=== PATIENT | male | born 1955 | race Caucasian/White ===

== ENCOUNTER → 2024-08-14 | Outpatient (CLI) | payer OTHER, SELFPAY ==
--- NOTE | 2024-08-14 12:00 | XR_ITS ---
Exam: MRI knee without contrast, left Date and time of exam: August 14, 2024 1220 hours INDICATIONS: Left knee pain joint locking clicking stiffness 24 years Technique: Multiple axial, coronal, and sagittal sections on the knee have been obtained. T2-Weighted sagittal, fat-suppressed images, TR 3,500, TE 62, T2 weighted coronal fat-saturated images, TR 3,500, TE 62 Proton density sagittal sections, TR 1800, TE 31. T-1 weighted coronal images, TR 524, TE 13.0 Findings: Medial meniscus anterior horn truncation intermargin. Medial meniscus, body large horizontal linear tear. Posterior horn medial meniscus horizontal linear tear communicating inferior articular surface near the inner margin. Lateral meniscus anterior horn is intact linear tear Lateral meniscus, body is intact Posterior horn lateral meniscus is intact Anterior cruciate ligament mild attenuation Posterior cruciate ligament appears intact. Knee effusion is minimal. Quadriceps and patellar tendons appear intact. There is no evidence of tendinosis. Inflammatory change or fracture of Hoffa's fat pad is not seen. Medial patellar facet demonstrates severe thinning. Lateral patellar facet cartilage demonstrates severe thinning. Trochlear cartilage demonstrates severe thinning. Marrow signal adequate. Medial collateral ligament appears intact. No meniscocapsular separation is seen. Illiotibial band and fibular collateral ligament are intact. Biceps femoris tendons appear intact. Medial femoral condylar articular cartilage demonstrates severe thinning. Lateral femoral condylar articular cartilage demonstratesmild thinning. Tibial plateau cartilage demonstrates severe medial thinning. Impression: Extensive medial meniscus tears Tear anterior horn lateral meniscus Mild attenuation anterior cruciate ligament Severe thinning cartilage patellofemoral and medial joint spaces
[2024-08-14 12:15] VITALS: BP 141/96; PULSE 58; RESP 22; O2SAT 96
[2024-08-14 12:20] VITALS: BP 121/74; PULSE 57; RESP 22; O2SAT 92
[2024-08-14 12:25] VITALS: BP 125/88; PULSE 57; RESP 22; O2SAT 92
[2024-08-14 12:30] VITALS: BP 121/86; PULSE 58; RESP 22; O2SAT 93
--- NOTE | 2024-08-14 12:34 | PC.NURSE ---
MRI left knee completed, patient tolerated procedure wel
== END | disposition home or self-care (01) ==
PROVIDERS: PCP Family Medicine; Referring Provider Family Medicine; Visit Provider Family Medicine
DX: S83.242A Other tear of medial meniscus, current injury, left knee, initial encounter (principal); S83.282A Other tear of lateral meniscus, current injury, left knee, initial encounter; X58.XXXA Exposure to other specified factors, initial encounter; M25.862 Other specified joint disorders, left knee
CPT/HCPCS: 73721